=== PATIENT | male | born 1980 | race Caucasian/White ===

== ENCOUNTER 2023-02-02 02:54 | Emergency (ER) | payer SELFPAY ==
[~2023-02-02] VITALS: Ht 172.7 cm; Wt 140.0 kg
[2023-02-02 03:13] VITALS: BP 150/106; PULSE 79; RESP 16; TEMP 98; O2SAT 100
== END 2023-02-02 05:21 | disposition left against medical advice (07) ==
LOC: ER 03:54
DX: M54.9 Dorsalgia, unspecified (principal); Z53.21 Procedure and treatment not carried out due to patient leaving prior to being seen by health care provider
CPT/HCPCS: 99281